=== PATIENT | female | born 1990 | race Caucasian/White ===

== ENCOUNTER 2022-03-01 10:11 | Inpatient (IN) ==
[2022-03-01] MEDS ORDERED: LIDOCAINE 1% LOCAL 20 ML VIAL INFIL PRN (10:26)
[2022-03-01] MEDS ORDERED: OXYTOCIN 30 UNITS/500 ML BAG IV PRN ×2 (10:26→12:30)
[2022-03-01] MEDS: LACTATED RINGER'S 1,000 ML IV PRN ×2 (10:30→11:32)
[2022-03-01] MEDS ORDERED: Patient's ALLERGY Info needs ENTERED STA (10:31)
[2022-03-01 10:52] LABS: Hematocrit (blood only) 34.3 % (34.1-44.9); Hemoglobin 10.4 g/dl (12.0-16.0); Mean Corpuscular Hemoglobin 20.9 pg (25.0-34.0); Mean Corpuscular Hgb Conc 30.3 g/dL (32.0-36.0); Platelet Count 333 K/uL (130-400); RDW Coefficient of Variation 16.7 % (11.5-14.5); RDW Standard Deviation 40.7 fL (36.4-46.3); Red Blood Count 4.97 M/uL (3.93-5.22); White Blood Count 13.49 K/ul (4.8-10.8)
[2022-03-01] MEDS ORDERED: fentaNYL citrate 100 MCG/2 ML VIAL ONE (11:00)
[2022-03-01] MEDS ORDERED: ePHEDrine sulfate 50 MG/ML AMP ONE (11:00)
[2022-03-01] MEDS ORDERED: SODIUM CHLORIDE 0.9% INJ 10 ML VIAL ONE (11:00)
[2022-03-01] MEDS ORDERED: fentaNYL 2MCG/ML ROPIVACAINE 1.25MG/ML 100 ML BAG EPI ONE (11:01)
[2022-03-01] MEDS ORDERED: BUPIVACAINE 0.25% 30 ML VIAL ONE (11:01)
[2022-03-01] MEDS ORDERED: LIDOCAINE 2%/EPINEPHRINE 1:200,000 20 ML SDV ONE (11:01)
[2022-03-01] MEDS ORDERED: BENZOCAINE 20% AER SPR 82.5 GM CAN EXT PRN (12:30)
[2022-03-01] MEDS ORDERED: HYDROCORTISONE ACETATE 25 MG SUPP PR PRN (12:30)
[2022-03-01] MEDS ORDERED: DIPHTHERIA/TETANUS/PERTUSSIS 0.5 ML SYR/VIAL IM ONE (12:30)
[2022-03-01] MEDS ORDERED: ACETAMINOPHEN 325 MG TAB PO PRN (12:30)
[2022-03-01] MEDS ORDERED: bisacodyL 10 MG SUPP PR PRN (12:30)
--- NOTE | 2022-03-01 12:30 | Delivery Summary ---
Vaginal Delivery Summary Date of Service March 01, 2022 Vaginal Delivery Summary Delivery Note Live male ALEXANDER with delayed cord clamping and Apgars 8/9 weight pending. Cord blood obtained followed by spontaneous delivery of intact placenta. EBL 100 ml. Strait cath of bladder done with 100 ml. clear urine. Final sponge and needle count are correct. Mom and baby stable.
--- NOTE | 2022-03-01 12:35 | History & Physical Report ---
Date of Service March 01, 2022 Assessment & Plan (1) Spontaneous onset of labor: Plan: Delivery imminent Admission and Anticipated Discharge Date Admission Date: March 01, 2022 History of Present Illness Chief Complaint: term in labor Primary Care Provider: SANDIP PCP 32 F P1001 at 38+ weeks admitted in active labor. GBS and Covid are negative. 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 Beliefs That Will Affect Care: None marital status: Current Living Situation: Spouse Other Information That Helps Us Care for You: No Feels Safe at Home: No Is there a partner from a previous relationship who is making you feel unsafe now?: No Any Concerns about Your Family Situation: No Would You Like to Speak to Someone About Your Situation: No Safety Concerns: Feels Safe At This Time Assistive Devices: None OB History x1 CORRECTIONAL FACILITY PSYCHIATRIST History neg Review of Systems All systems reviewed & are unremarkable except as noted in HPI & below Physical Exam Constitutional: WD/WN, vitals as above Eyes: PERRL, conjunctivae normal, anicteric sclerae Respiratory: normal respiratory effort, lungs clear to auscultation Cardiovascular: Rate/Rhythm: regular rate and regular rhythm Gastrointestinal (Abdomen): Inspection/Auscultation: abdomen normal to inspection fundus to term Musculoskeletal: Extremities: extremities normal to inspection Skin: no rashes, warm and dry Neurologic: patellar DTR's 2+ bilat, sensation intact Psychiatric: A+Ox3, euthymic affect Genitourinary: no vaginal lesions, no adnexal mass Manual OB Exam: + cervical dilation 5 cm, + cervical effacement 100% and + station high OB Exam Monitor Tracing: + external FHT monitor used, + external uterine monitor used, + category I and + normal FHT variability Results & Data ([place]) Vital Signs (Past 12 Hours) Vital Signs Resp 03/01/22 12:19 20 03/01/22 12:04 20 Laboratory Results Laboratory Results - last 24 hr 03/01/22 03/01/22 10:40 10:40 WBC 13.49 H RBC 4.97 Hgb 10.4 L Hct 34.3 MCV 69.0 L MCH 20.9 L MCHC 30.3 L RDW Std Deviation 40.7 RDW Coeff of Zohra 16.7 H Plt Count 333 MPV 12.0 SARS-CoV-2, RNA, NAAT NEGATIVE Code Status & VTE Plan VTE Prophylaxis Plan VTE Prophylaxis will be ordered: No Monitoring External Monitor Cat 1
[2022-03-01] MEDS: DOCUSATE SODIUM 100 MG CAP PO SCH (21:56)
[2022-03-01] MEDS: IBUPROFEN 600 MG TAB PO PRN (23:22)
[2022-03-02 06:40] LABS: Hematocrit (blood only) 29.2 % (34.1-44.9); Hemoglobin 8.8 g/dl (12.0-16.0); Mean Corpuscular Hemoglobin 20.9 pg (25.0-34.0); Mean Corpuscular Hgb Conc 30.1 g/dL (32.0-36.0); Mean Corpuscular Volume 69.4 fL (80.0-100.0); Mean Platelet Volume 11.5 fL (9.4-12.3); Platelet Count 225 K/uL (130-400); RDW Coefficient of Variation 16.7 % (11.5-14.5); RDW Standard Deviation 40.7 fL (36.4-46.3); Red Blood Count 4.21 M/uL (3.93-5.22); White Blood Count 11.77 K/ul (4.8-10.8)
[2022-03-02] MEDS ORDERED: PRENATAL VITAMIN 1 TAB PO SCH (08:00)
[2022-03-02] MEDS ORDERED: FERROUS SULFATE 325 MG TAB PO SCH (08:00)
[2022-03-02] MEDS ORDERED: NON-FORMULARY MEDICATION (Prenat.Vits,Cal,Min-Iron-Folic Tablet) PO SCH (09:00)
[2022-03-02] MEDS: IBUPROFEN 600 MG TAB PO PRN ×2 (09:07→17:15)
[2022-03-02] MEDS: DOCUSATE SODIUM 100 MG CAP PO SCH (09:09)
--- NOTE | 2022-03-02 10:08 | Obstetrical Progress Note ---
Date of Service March 02, 2022 Subjective Ambulation: ambulating normally Voiding: no voiding problems Passing Gas:: Yes Diet Tolerance:: regular diet Lochia:: Small Feeding Type:: breast feeding Current Pain Level(1-10): 0 doing well Physical Exam Constitutional WD/WN, vitals as above Gastrointestinal (Abdomen) Inspection/Auscultation: abdomen normal to inspection abdomen soft and non-tender fundus firm below U Musculoskeletal Extremities: extremities normal to inspection Skin no rashes, warm and dry Neurologic patellar DTR's 2+ bilat, sensation intact Psychiatric A+Ox3, euthymic affect Results & Data ([facility]) Vital Signs (Past 12 Hours) Vital Signs Temp Pulse Resp BP 03/02/22 02:40 36.8 C 55 L 18 107/66 03/01/22 23:25 37.0 C 73 18 113/76
--- NOTE | 2022-03-02 10:11 | Obstetrical Progress Note ---
Date of Service March 02, 2022 Subjective Ambulation: ambulating normally Voiding: no voiding problems Passing Gas:: Yes Diet Tolerance:: regular diet Lochia:: Small Feeding Type:: breast feeding Current Pain Level(1-10): 0 doing well Review of Systems All systems reviewed & are unremarkable except as noted in HPI & below Physical Exam Constitutional WD/WN, vitals as above Gastrointestinal (Abdomen) Inspection/Auscultation: abdomen normal to inspection abdomen soft and non-tender Musculoskeletal Extremities: extremities normal to inspection Neurologic patellar DTR's 2+ bilat, sensation intact Psychiatric A+Ox3, euthymic affect Results & Data ([facility]) Vital Signs (Past 12 Hours) Vital Signs Temp Pulse Resp BP 03/02/22 02:40 36.8 C 55 L 18 107/66 03/01/22 23:25 37.0 C 73 18 113/76 Laboratory Results 03/01/22 03/01/22 03/02/22 10:40 10:40 06:15 WBC 13.49 H 11.77 H RBC 4.97 4.21 Hgb 10.4 L 8.8 L Hct 34.3 29.2 L MCV 69.0 L 69.4 L MCH 20.9 L 20.9 L MCHC 30.3 L 30.1 L RDW Std Deviation 40.7 40.7 RDW Coeff of Zohra 16.7 H 16.7 H Plt Count 333 225 MPV 12.0 11.5 SARS-CoV-2, RNA, NAAT NEGATIVE
[2022-03-02] MEDS ORDERED: bisacodyL 5 MG TABEC PO SCH (20:00)
== END 2022-03-02 17:45 | disposition home or self-care (01) | DRG 807 ==
LOC: OPB 10:11 → 4S1 10:11 → 4E2 14:31